=== PATIENT | female | born 2000 | race Two or more races ===

== ENCOUNTER 2019-09-24 21:44 | Inpatient (IN) | payer OTHER ==
[~2019-09-24] VITALS: Ht 165.1 cm; Wt 92.1 kg
[2019-09-24] MEDS ORDERED: IV NORMAL SALINE 1,000ML 1,000 ML IV ONE (22:15)
[2019-09-24] MEDS ORDERED: LOPERAMIDE 2 MG CAPSULE PO ONE (22:15)
--- NOTE | 2019-09-24 22:40 | PHYS DOC ---
Past History Past Medical History: Anemia, Asthma, Other Additional Past Medical Histor: ITP at 8 yrs Alcohol Use: None Drug Use: None Adult General Chief Complaint Chief Complaint: DIARRHEA HPI HPI 18-year-old female presents with diarrhea. She has had diarrhea with every stool last 3 weeks. She feels like it is getting worse. She has had mixed insulin, but the volume of blood seems to be increasing. The stool is very watery. She has pain before and during defecation. The patient had a colonoscopy 5 years ago that was reportedly unremarkable. She had a workup that time, but no definitive diagnosis was given. Patient denies camping, foreign travel, well water, insertive anal sex. She denies fever or chills. No significant change in eating habits or medications. Review of Systems Review of Systems Constitutional: Denies fever or chills [] Eyes: Denies change in visual acuity, redness, or eye pain [] HENT: Denies nasal congestion or sore throat [] Respiratory: Denies cough or shortness of breath [] Cardiovascular: No additional information not addressed in HPI [] GI: Left lower quadrant abdominal pain, bloody stools and diarrhea [] : Denies dysuria or hematuria [] Musculoskeletal: Denies back pain or joint pain [] Integument: Denies rash or skin lesions [] Neurologic: Denies headache, focal weakness or sensory changes [] Endocrine: Denies polyuria or polydipsia [] All other systems were reviewed and found to be within normal limits, except as documented in this note. Current Medications Current Medications Current Medications Medications (Trade) Dose Ordered Sig/Cuate Start Time Stop Time Status Last Admin Dose Admin Loperamide HCl (Imodium) 4 mg 1X ONCE 09/24/19 22:15 09/24/19 22:16 DC Sodium Chloride 1,000 ml @ 1,000 mls/hr 1X ONCE 09/24/19 22:15 09/24/19 23:14 Allergies Allergies Allergies Coded Allergies Type Severity Reaction Last Updated Verified No Known Drug Allergies 09/24/19 No Physical Exam Physical Exam Constitutional: Well developed, well nourished, no acute distress, non-toxic appearance. [] HENT: Normocephalic, atraumatic, bilateral external ears normal, oropharynx moist, no oral exudates, nose normal. [] Eyes: PERRLA, EOMI, conjunctiva normal, no discharge. [] Neck: Normal range of motion, no tenderness, supple, no stridor. [] Cardiovascular:Heart rate regular rhythm, no murmur [] Lungs & Thorax: Bilateral breath sounds clear to auscultation [] Abdomen: Bowel sounds normal, soft, LLQ tenderness, no masses, no pulsatile masses. [] Skin: Warm, dry, no erythema, no rash. [] Back: No tenderness, no CVA tenderness. [] Extremities: No tenderness, no cyanosis, no clubbing, ROM intact, no edema. [] Neurologic: Alert and oriented X 3, normal motor function, normal sensory function, no focal deficits noted. [] Psychologic: Affect normal, judgement normal, mood normal. [] Current Patient Data Vital Signs Vital Signs Date Time Temp Pulse Resp B/P (MAP) Pulse Ox O2 Delivery O2 Flow Rate FiO2 09/24/19 21:50 99.1 105 18 99 Room Air EKG EKG [] Radiology/Procedures Radiology/Procedures [] Impressions: INDICATION: Abdomen pain COMPARISON: None. TECHNIQUE: Axial CT images obtained through the abdomen and pelvis with contrast. One or more of the following individualized dose reduction techniques were utilized for this examination: 1. Automated exposure control; 2. Adjustment of the mA and/or kV according to patient size; 3. Use of iterative reconstruction technique. FINDINGS: Abdominal aorta is not aneurysmal. Liver is low density. No peripancreatic fluid collection. Spleen unremarkable. No hydronephrosis. Urinary bladder has minimal urine within it at time of exam. Wall thickening of the distal colon. Fullness of the right adnexa. There is some mild haziness to the fat adjacent to the colon. There are some scattered prominent lymph nodes. No evidence of periappendiceal inflammation. No dilated loops of bowel to suggest obstruction. IMPRESSION: * Wall thickening of the colon with adjacent edema to the fat which can be seen with causes such as colitis. There is some scattered adjacent prominent lymph nodes which could be reactive to the adjacent colonic process. * There is some fullness of the right adnexa. * Liver is low density. Nonspecific but can be seen with fatty infiltration. Electronically signed by: Kari Richards MD (09/25/2019 12:03 AM) [facility] DICTATED AND SIGNED BY: KARI RICHARDS MD DATE: 09/25/19 0003 CC: TALI MCGRATH DO; PCP,JERRICA ~ Course & Med Decision Making Course & Med Decision Making Pertinent Labs and Imaging studies reviewed. (See chart for details) The patient's labs are significant for slightly elevated white count, hemoglobin of 7.6. Her rectal exam did not show any dominik blood. We do not have a stool sample at this time. Her CT scan suggests colitis. I'm unsure if this is infectious, autoimmune, inflammatory, etc. I will not start patient on a specific therapy until stool sample can be obtained. I will leave this up to the hospitalist. The patient will be admitted for her anemia due to acute blood loss and further management. I talked with Dr. Perez and he has accepted the patient for admission. [] Dragon Disclaimer Dragon Disclaimer This electronic medical record was generated, in whole or in part, using a voice recognition dictation system. Departure Departure: Impression: Primary Impression: Anemia due to blood loss Additional Impression: Colitis Disposition: ADMITTED INPATIENT Admitting Physician: Gigi Perez Condition: STABLE Referrals: PCPJERRICA (PCP) Scripts No Active Prescriptions or Reported Meds Problem Qualifiers TALI MCGRATH DO Sep 24, 2019 22:40
[2019-09-24 23:03] LABS: BASO % 0 % (0-3); EOS % 9 % (0-3); HEMATOCRIT 25.4 % (36.0-47.0); HEMOGLOBIN 7.6 g/dL (12.0-15.5); LYMPH # 3.2 x10^3/uL (1.0-4.8); LYMPH % 27 % (24-48); MEAN CORPUSCULAR HEMOGLOBIN 20 pg (25-35); MEAN CORPUSCULAR HGB CONC 30 g/dL (31-37); MEAN CORPUSCULAR VOLUME 68 fL (79-100); MONO # 1.1 x10^3/uL (0.0-1.1); MONO % 10 % (0-9); NEUT # 6.4 x10^3uL (1.8-7.7); NEUT % 54 % (31-73); PLATELET COUNT 508 x10^3/uL (140-400); RED BLOOD COUNT 3.75 x10^6/uL (3.50-5.40); RED CELL DISTRIBUTION WIDTH 16.6 % (11.5-14.5); WHITE BLOOD COUNT 11.7 x10^3/uL (4.0-11.0)
[2019-09-24 23:10] LABS: CLARITY,URINE CLOUDY; COLOR,URINE YELLOW
[2019-09-24 23:11] LABS: AMORPHOUS SEDIMENT,UR PRESENT /HPF; BACTERIA,URINE 0 /HPF (0-FEW); BILIRUBIN,URINE NEG (NEG); GLUCOSE,URINE NEG (NEG); NITRITE,URINE NEG (NEG); RBC,URINE 0 /HPF (0-2); SQUAMOUS EPITHELIAL CELL,UR OCC /LPF; UROBILINOGEN,URINE 0.2 mg/dL (0.2 mg/dL); WBC,URINE 0 /HPF (0-4)
[2019-09-24 23:15] LABS: ALBUMIN/GLOBULIN RATIO 0.7 (1.0-1.7); CALCIUM 8.1 mg/dL (8.5-10.1); CREATININE 0.8 mg/dL (0.6-1.0); GFR 91.4; POTASSIUM 3.1 mmol/L (3.5-5.1); TOTAL BILIRUBIN 0.6 mg/dL (0.2-1.0); TOTAL PROTEIN 7.6 g/dL (6.4-8.2)
[2019-09-24] MEDS ORDERED: CONTRAST GIVEN MC PRN (23:15)
[2019-09-24] MEDS ORDERED: IOHEXOL 300 MG/ML 75 ML VIAL. IV ONE (23:15)
[2019-09-24 23:35] LABS: HYPOCHROMIA MOD; PLT ESTIMATE INCREASED (ADEQUATE)
[2019-09-24 23:36] LABS: MICROCYTOSIS MOD
[2019-09-24] MEDS ORDERED: ONDANSETRON PF 4 MG/2 ML VIAL. IVP ONE (23:45)
[2019-09-25] VITALS (12 sets, daily range): BP systolic 101–130; BP diastolic 58–77
--- NOTE | 2019-09-25 00:05 | RAD ---
INDICATION: Abdomen pain COMPARISON: None. TECHNIQUE: Axial CT images obtained through the abdomen and pelvis with contrast. One or more of the following individualized dose reduction techniques were utilized for this examination: 1. Automated exposure control; 2. Adjustment of the mA and/or kV according to patient size; 3. Use of iterative reconstruction technique. FINDINGS: Abdominal aorta is not aneurysmal. Liver is low density. No peripancreatic fluid collection. Spleen unremarkable. No hydronephrosis. Urinary bladder has minimal urine within it at time of exam. Wall thickening of the distal colon. Fullness of the right adnexa. There is some mild haziness to the fat adjacent to the colon. There are some scattered prominent lymph nodes. No evidence of periappendiceal inflammation. No dilated loops of bowel to suggest obstruction. IMPRESSION: * Wall thickening of the colon with adjacent edema to the fat which can be seen with causes such as colitis. There is some scattered adjacent prominent lymph nodes which could be reactive to the adjacent colonic process. * There is some fullness of the right adnexa. * Liver is low density. Nonspecific but can be seen with fatty infiltration. Electronically signed by: Zackery Richards MD (09/25/2019 12:03 AM) [facility]
[2019-09-25] MEDS ORDERED: ONDANSETRON PF 4 MG/2 ML VIAL. IV PRN (00:45)
[2019-09-25 03:07] LABS: FECAL OB PT POSITIVE (NEG)
[2019-09-25] MEDS ORDERED: metroNIDAZOLE 500 MG TABLET PO ONE (06:30)
[2019-09-25] MEDS ORDERED: levoFLOXacin 750 MG TABLET PO ONE (06:30)
[2019-09-25 09:01] LABS: HEMATOCRIT 25.9 % (36.0-47.0); HEMOGLOBIN 7.8 g/dL (12.0-15.5); RED BLOOD COUNT 3.82 x10^6/uL (3.50-5.40); RED CELL DISTRIBUTION WIDTH 16.8 % (11.5-14.5); WHITE BLOOD COUNT 12.3 x10^3/uL (4.0-11.0)
[2019-09-25 09:11] LABS: CALCIUM 7.8 mg/dL (8.5-10.1); CREATININE 0.7 mg/dL (0.6-1.0); GFR 106.7
[2019-09-25 09:14] LABS: POTASSIUM 2.9 mmol/L (3.5-5.1)
[2019-09-25] MEDS ORDERED: POTASSIUM CHLORIDE 20 MEQ TABLET.ER. PO ONE ×2 (09:30→21:00)
[2019-09-25] MEDS: POTASSIUM CL 40MEQ D5-0.45NACL 1,000 ML IV SCH (09:48)
[2019-09-25 14:23] LABS: CALCIUM 7.3 mg/dL (8.5-10.1); CREATININE 0.8 mg/dL (0.6-1.0); GFR 91.4; POTASSIUM 3.6 mmol/L (3.5-5.1)
[2019-09-25] MEDS ORDERED: ACETAMINOPHEN 325 MG TABLET PO PRN (15:15)
--- NOTE | 2019-09-25 15:42 | HP ---
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 She was persuaded to come to the hospital by her mother. Her stool was described as very watery. She has pain before and during defecation. The patient had a colonoscopy for a similar episode when she was in [place]. At that time, according to her has had a colonoscopy and was also treated with prednisone, although no definite diagnosis was given to her. She denied any camping or foreign travel, well water or insertive anal sex. She denied any fever or chills. No significant change in eating habits or medication. She was evaluated in the Emergency Room and her lab work was notable for hypokalemia with potassium of 3.1. She had slightly elevated white cell count and definitely microcytic hypochromic anemia with hemoglobin of 7.6, hematocrit 25 and probably reactive thrombocytosis with platelet count 508,000. Her urinalysis was essentially unremarkable. Her stool was positive for occult blood. The patient was admitted and was started on IV Levaquin as well as Flagyl together with IV fluid with potassium supplement. PAST MEDICAL HISTORY: Significant for episode of ITP when she was 7 years old and episode of colitis when she was 14. She is known to have bronchial asthma and eczema. PAST SURGICAL HISTORY: Significant for colonoscopy when she was 14 years old. ALLERGIES: She is allergic to SULFA DRUGS, although she stated that her mom is allergic to sulfa drugs, she herself is not. MEDICATIONS: She is not on any medication by prescription or [id number]. FAMILY HISTORY: She has two sisters and one brother, all older. One of her oldest sister has systemic lupus erythematosus and she is 31 years old. Her father is alive at age of 47, has diabetes. Mother is alive at age of 50 and apparently healthy. 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. She is vaping, drinks alcohol very occasionally. Does not use any illicit drugs. Her last menstrual period was about 3 months ago. She had spotting about a week ago that has subsided. REVIEW OF SYSTEMS: The patient denied any blurring of vision, cataract, glaucoma or macular degeneration. Denied any earache, tinnitus or sensorineural deafness. Denied any nosebleeds, stuffy nose or postnasal drip. Denied any sore throat, sore tongue, toothache, hoarseness of voice or difficulty swallowing. Denied any nausea or vomiting. Did complain of diarrhea and hematochezia. Denied any dysuria, frequency or hematuria. Denied any chest pain, shortness of breath, orthopnea, paroxysmal nocturnal dyspnea. Denied any dizziness, lightheadedness or vertigo. PHYSICAL EXAMINATION: GENERAL: On arrival to the Emergency Room, she was pale somewhat, but there was no jaundice, cyanosis or thyromegaly. No jugular venous distention. No lower limb edema. VITAL SIGNS: Her heart rate was 105, blood pressure was 127/62, temperature was 99.1, respiratory rate was 18 and oxygen saturation was 99%. HEAD, EYES, EARS, NOSE AND THROAT: Showed normocephalic, atraumatic. NECK: Supple. HEART: Showed normal first and second heart sounds. No gallop or murmur. CHEST: Clear to auscultation. No crepitation or rhonchi. ABDOMEN: Distended, soft. No guarding or rigidity. No organomegaly. All hernial orifices intact. Bowel sounds normal. She does have lower quadrant tenderness, but no palpable masses or pulsatile masses. NEUROLOGIC: She is awake, alert, responding appropriately. All cranial nerves intact. EXTREMITIES: She moves extremities without difficulty. She ambulates without assistance or assistive devices. LABORATORY DATA: On arrival showed her white cell count of 11,700, hemoglobin 7.6, hematocrit 25.4, MCV 68 and platelet count of 508,000 with normal manual differential. Her chemistry showed serum sodium 142, potassium 3.1, chloride 104, bicarbonate 29, anion gap of 9, BUN 10, creatinine 0.8, estimated GFR was 91 mL per minute. Her glucose was 81, calcium was 8.1. Total bilirubin, AST, ALT, alkaline phosphatase were normal. Total protein was 7.6, albumin 3. Urinalysis showed the urine was yellow, cloudy with a pH of 6, specific gravity of 1.030, small amount of protein. The urine was negative for glucose, ketones. There was trace of blood, negative for nitrite and leukocyte esterase. There were no rbc's, no wbc's and no bacteria. Her stool for occult blood was positive. She did have a CT scan of the abdomen and pelvis, which basically showed the abdominal aorta is not aneurysmal, liver is low density, no peripancreatic fluid collection, spleen is unremarkable. No hydronephrosis. Urinary bladder has minimal urine within it at the time of exam. Wall thickening of the distal colon and Fullness of the right adnexa. There is some mild haziness to the fat adjacent to the colon. There are some scattered prominent lymph nodes. No evidence of periappendiceal inflammation, no dilated loops of bowel to suggest obstruction and the impression is that the patient has wall thickening of the colon with adjacent edema to the fat, which can be seen with causes such as colitis. There are some scattered adjacent prominent lymph nodes which could be reactive to the adjacent colonic process. There is some fullness of the right adnexa. Liver is low density, nonspecific, can be seen with fatty infiltration. ASSESSMENT AND PLAN: The patient was admitted on the possibility of infective colitis versus inflammatory bowel disease. We will monitor. She has also hypokalemia. She was started on IV fluid with potassium. We did start her also on levofloxacin and Flagyl. We will try to get her medical records from [place] and she if does have inflammatory bowel disease, obviously we will start her on steroids and we might have transfer her to [facility] for her to be seen by the cnc manufacturing engineer. OREN DOWNS MD DR: DORYS/alverto JOB#: [id number] / [id number]
[2019-09-25] MEDS ORDERED: diphenhydrAMINE 50 MG/ML VIAL IVP ONE (18:15)
[2019-09-25] MEDS ORDERED: MELATONIN 3 MG TABLET PO PRN (18:15)
--- NOTE | 2019-09-25 18:20 | NUR ---
Blood transfusion started at 1757. Tubing primed with normal saline and then primed with blood. Transfusion started at 60ml/hr , patient monitored closely x 15 min, no reaction noted. Transfusion increased to 100ml/hr.
--- NOTE | 2019-09-25 21:42 | NUR ---
ended pts blood transfusion 21:25. pts vitals are WNL, pt is laying in bed with no complaint. no transfusion reaction noted will continue to monitor.
[2019-09-26] MEDS: POTASSIUM CL 40MEQ D5-0.45NACL 1,000 ML IV SCH (01:54)
[2019-09-26 06:09] LABS: CALCIUM 7.7 mg/dL (8.5-10.1); CREATININE 0.7 mg/dL (0.6-1.0); GFR 106.7; POTASSIUM 4.1 mmol/L (3.5-5.1)
[2019-09-26 06:12] LABS: HEMATOCRIT 28.3 % (36.0-47.0); HEMOGLOBIN 8.6 g/dL (12.0-15.5); RED BLOOD COUNT 4.04 x10^6/uL (3.50-5.40); RED CELL DISTRIBUTION WIDTH 18.6 % (11.5-14.5)
[2019-09-26 06:14] VITALS: BP 106/64
[2019-09-26 07:38] VITALS: BP 115/72
--- NOTE | 2019-09-26 08:00 | NUR ---
NSG NOTE; TRANSFER TO [facility] REPORT CALLED BY GISEL DO PAPER COPY OF CHART INCLUDING MED REC SENT WITH PT DISCHARGED AT 0800 VIA CART ACCOMP BY EMS PERSONNEL FOR TRANSFER TO [facility] FOR GI CONSULT
== END 2019-09-26 08:00 | disposition short-term general hospital (02) | DRG 392 ==
LOC: ER 21:44 → 1 SOUTH 23:50 → ER 09-25 01:35
PROVIDERS: ADMIT Internal Medicine; ATTEND Internal Medicine
DX: K52.9 Noninfective gastroenteritis and colitis, unspecified (principal); D62 Acute posthemorrhagic anemia; J45.909 Unspecified asthma, uncomplicated; K63.89 Other specified diseases of intestine; E87.6 Hypokalemia; Z88.2 Allergy status to sulfonamides; Z83.3 Family history of diabetes mellitus; Z83.2 Family history of diseases of the blood and blood-forming organs and certain disorders involving the immune mechanism
CPT/HCPCS: 36415; 74177; 80048; 80053; 81001; 82274; 82728; 83540; 83550; 85014; 85018; 85025; 85027; 86850; 86900; 86901; 86920; 87177; 87493; 96361; 96374; J1200; J2405; J3010; J3490; J7042; P9016; Q9967; 99285-25; J7030